=== PATIENT | male | born 1990 | race Hispanic/Latino ===

== ENCOUNTER 2017-04-30 10:48 | Emergency (ER) | payer SELFPAY ==
[~2017-04-30] VITALS: Ht 172.7 cm; Wt 68.6 kg
[2017-04-30 10:56] VITALS: BP 146/96; PULSE 85; RESP 14; O2SAT 97
--- NOTE | 2017-04-30 11:10 | ED.REPORT ---
HPI-Back Pain Under 40 Date of Service Apr 30, 2017 ED Provider: History of Present Illness: 27-year-old male here for right low back pain. It has been present for month. It worsens when he bends down to pick something up, or really move in any way. It is better when he lies flat and is resting. 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 He does not have a regular doctor. He saw the urgent care yesterday and all they did was give him ibuprofen. He has taken 1 dose of ibuprofen and it has not worked. He denies radiation or numbness or tingling. No loss of bowel or bladder. No fever. No IV drug use. He is otherwise healthy. Nursing Notes Stated Complaint: BACK PAIN Chief Complaint: Back Pain or Injury Nursing Notes Reviewed: Yes Allergies: Coded Allergies: No Known Allergies (Unverified Allergy, Unknown, 07/28/16) Scheduled PRN Cyclobenzaprine (Cyclobenzaprine) 10 Mg Tablet 10 MG PO HS PRN PRN Spasm General Time Seen by MD: 11:03 Chief Complaint Back pain Hx Obtained From: Patient Arrived By: Walk-in Sudden in Onset?: No Onset Occurred: More than a week ago... (4 weeks) Location: : Perispinal lumbar Radiation: : Does not radiate Severity: Current: Moderate Severity: Maximum: Moderate Recent Healthcare: Recent doctor visit Similar Sx Previous: No Past Medical History Past Medical History Notes: denies Review of Systems Constitutional: Denies: Fever Musculoskeletal: Reports: Back pain Complete sys rev & neg: except as marked. Physical Exam Initial Vital Signs Vital Signs (First) Date Time Temp Pulse Resp B/P Pulse Ox O2 Delivery O2 Flow Rate FiO2 04/30/17 10:56 36.8 85 14 146/96 97 Room Air Initial VS: Reviewed, Vital signs normal General/Constitutional: Awake, Alert, Well appearing Back: Atraumatic, Inspection NL, Full range of motion, No midline vertebral tend, No muscle spasm, Straight leg raise neg, No CVA tenderness Flank / Spine / Paraspinal: Positive: Lumbar paraspinal tend... (Mid), Negative: Lumbar spine tender..., Thorac paraspinal tend..., Thoracic spine tender... Pain with forward bend at 60. Increased pain with getting back up from his forward bend. Has full range of motion though. Patellar reflexes 3+ brisk and intact. Lower extremity strength equal and strong. Neurologic: Oriented X3, Speech NL, No motor deficits, No sensory deficits, Reflexes equal bilat Respiratory / Chest: Breath sounds NL, Breath sounds = bilat, No respiratory distress, No rales, No rhonchi, No wheezing Cardiovascular: Heart rate NL, Regular rhythm, Heart sounds NL, Peripheral circulation NL Discharge & Departure Shift Change Sign-Out Imaging Studies: Imaging discussed Impression: Primary Impression: Lumbosacral strain Encounter type: initial encounter Qualified Code: S39.012A - Strain of muscle, fascia and tendon of lower back, initial encounter Disposition: Home All VS Reviewed: Yes Condition: Stable Patient Instructions: Low Back Strain (ED) Referrals: NOPCP (PCP) [facility]ising Provider for APC: Irasema Osman MD, Linnea K ARNP Apr 30, 2017 11:10
[2017-04-30] MEDS ORDERED: CYCL10TA9 PO (11:36)
[2017-04-30 11:46] VITALS: BP 138/90; PULSE 90; RESP 16; O2SAT 98
== END 2017-04-30 11:50 | disposition home or self-care (01) ==
LOC: SED 10:48
DX: S39.012A Strain of muscle, fascia and tendon of lower back, initial encounter (principal); X50.9XXA Other and unspecified overexertion or strenuous movements or postures, initial encounter; Y93.89 Activity, other specified; Y92.9 Unspecified place or not applicable; Y99.8 Other external cause status
CPT/HCPCS: 96372; 99283; J1885